=== PATIENT | female | born 2000 | race Caucasian/White ===

== ENCOUNTER 2024-11-11 09:14 | Emergency (ER) | payer OTHER, SELFPAY ==
[2024-11-11 09:16] VITALS: BP 112/72
[2024-11-11 09:35] LABS: Hematocrit 38.1 % (37.0-47.0); Hemoglobin 12.9 g/dL (12.0-16.0); Mean Corp Hgb Conc. 33.9 g/dL (33.0-37.0); Mean Corpuscular Volume 83.0 fL (81.0-99.0); Nucleated Red Blood Cells % 0 %; Platelet Count 217 10^3/uL (130-400); Red Cell Dist. Width 11.9 % (11.5-14.5)
[2024-11-11 09:46] LABS: Urine Character Clear (Clear)
[2024-11-11 09:48] LABS: HCG, Serum Qualitative Screen Negative
[2024-11-11 10:20] LABS: ALT (SGPT) 13 U/L (0-35); AST (SGOT) 22 U/L (14-36); Albumin 5.0 g/dl (3.5-5.0); Alkaline Phosphatase 41 U/L (38-126); Blood Urea Nitrogen 7 mg/dl (7-17); Calcium 9.7 mg/dl (8.4-10.2); Carbon Dioxide 14 mmol/L (22-30); Chloride 111 mmol/L (98-107); Glucose 89 mg/dl (70-99); Lipase 80 U/L (23-300); Potassium 4.3 mmol/L (3.5-5.1); Sodium 139 mmol/L (135-145); Total Protein 7.8 g/dl (6.3-8.2); eGFR > 60.00
== END 2024-11-11 11:36 | disposition left against medical advice (07) ==
LOC: EMR 09:14
PROVIDERS: EMERGENCY PHYSICIAN Emergency Medicine; FAMILY PHYSICIAN Family Medicine
DX: R10.31 Right lower quadrant pain (principal); Z53.21 Procedure and treatment not carried out due to patient leaving prior to being seen by health care provider
CPT/HCPCS: 80053; 81003; 81015; 83690; 84703; 85025; 87086

== ENCOUNTER 2024-11-13 10:14 | Emergency (ER) | payer OTHER, SELFPAY ==
[2024-11-13 10:17] VITALS: BP 124/72
[2024-11-13 10:37] VITALS: BMI 22.3
[2024-11-13 10:46] VITALS: BP 116/75
[2024-11-13] MEDS: OMNIPAQUE 50 ML PO (10:50)
[2024-11-13 11:00] VITALS: BP 101/77
--- NOTE | 2024-11-13 11:03 | ED.GENMED ---
History of Present Illness
General
Chief Complaint: Abdominal Pain
Source: patient
Exam Limitations: none
Time Seen by Provider: 11/13/24 10:35
Nursing documentation reviewed up to this point in time: agreed with
History of Present Illness
History of Present Illness:
23-year-old female presenting to the emergency department today with concerns of right lower abdominal discomfort over the past week especially worsening over the past few days. Denies significant nausea vomiting diarrhea. No vaginal symptoms. No
fevers.
Review of Systems
Review of Systems
Allergies reviewed?: Yes
All Other Systems: ROS reviewed and negative except as documented in HPI and ROS
Phy Exam
Physical Exam
Physical Exam:
GENERAL: Alert , in no apparent distress
EYE: pupils equal and reactive
NECK: Supple, no significant adenopathy.
ENT: o/p clr, mmm.
CARDIAC: Regular rate and rhythm .
LUNGS: Clear breath sounds bilaterally, no acute respiratory distress, no wheezes/rales/rhonchi
ABDOMEN: Right lower quadrant pain at McBurney's point otherwise soft abdomen
NEUROLOGICAL: Alert and oriented, no focal neuro deficits
SKIN: Warm and dry, skin intact.
MUSCULOSKELETAL: No edema, well perfused.
PSYCH: Normal and appropriate interaction.
Course
Orders/Labs/Results
Orders:
Orders
11/13/24 10:39
CT Abd/pel W Iv And Oral Contr Urgent
Comment:
Reason For Exam: RLQ pain
Iohexol [Omnipaque] See Protocol PO NOW STA
Test Result ONCE
11/13/24 10:53
Complete Blood Count/With Diff Urgent
Comprehensive Metabolic Panel Urgent
HCG, Serum Qualitative Screen Urgent
Urinalysis Reflex To Culture Urgent
Date Specimen was Collected: 11/13/24
Time Specimen was Collected: 10:50
Urine Microscopic Reflex Cult Urgent
Urine Culture Urgent
YUNI Source: U
Specimen Description:
Date Specimen was Collected: 11/13/24
Time Specimen was Collected: 10:50
Abnormal Lab Results
11/13/24
10:53
WBC 4.3 L 10^3/uL
(4.8-10.8)
MPV 11.4 H fL
(7.4-10.4)
Chloride 109 H mmol/L
(98-107)
BUN 6 L mg/dl
(7-17)
Leukocyte Esterase Rfl 3+ A
(Negative)
Urine WBC (Reflex) 16-20 A /HPF
(0-5)
Urine Bacteria (Reflex) Moderate A
(Negative)
Urine Yeast Few A
(Negative)
11/13/24 10:53
11/13/24 10:53
Vital Signs
Initial and Last Documented VS:
Initial Vital Signs
Temp Pulse Resp BP Pulse Ox
98.7 F 78 16 124/72 100
11/13/24 10:17 11/13/24 10:17 11/13/24 10:17 11/13/24 10:17 11/13/24 10:17
Last Documented Vital Signs
Temp Pulse Resp BP Pulse Ox
98.7 F 61 15 105/75 100
11/13/24 10:17 11/13/24 13:26 11/13/24 13:26 11/13/24 13:26 11/13/24 11:15
MDM/Problems Addressed
MDM/Problems Addressed:
23-year-old female presenting to the emergency department today with concerns of right lower quadrant abdominal pain present to some degree over the past week but specifically worsened over the past few days. Reproducible here on exam. Plan for CT
scan for further assessment. CT scan showing ovarian follicle rupture. No evidence of torsion on CT. Otherwise patient's urine with some white blood cells and bacteria however with significant squamous epithelial cells. She denies any urinary
symptoms. Otherwise stable for discharge return precautions given.
*Pulse Oximetry
SaO2: 100
Oxygen Mode of Delivery: Room air
Patient hypoxic: no (100)
*Critical Care Note
Total Time (30-74mins, 75-104mins- exclusive of procedures): Not Applicable
ED Attending Note
-
Portions of this chart may have been created with voice recognition software.� Occasional wrong word or��sound alike� substitutions may have occurred due to the inherent limitations of voice recognition software.
Discharge Plan
Departure
Patient Disposition: Home (Routine Discharge)
Date of Disposition: 11/13/24
Time of Disposition: 14:01
Patient with high blood pressure during this ER visit?: No
Condition: Good
Covid-19: Not Applicable
Discharge Problem:
Ovarian cyst rupture
Instructions: Ovarian Cyst (DC)
Prescriptions:
No Action
No Current Medications
0
Referrals:
Nina Reyes DO [Family Provider, Family Practice]
Activity Restrictions/Additional Instructions:
You came to the emergency department today with concerns of pelvic discomfort and abdominal discomfort. Here you had a CT scan that showed ruptured ovarian follicle. Please follow-up closely with gynecology for this. Return for any worsening, new
or concerning symptoms.
Interventions
Interventions:
*Risk Screen - Suicide Last Done: 11/13/24 10:17
*General Assessment Last Done: 11/13/24 10:35
*Neglect/Abuse Screening Last Done: 11/13/24 10:17
*ED- Fall Risk Assessment Last Done: 11/13/24 10:35
*ED COVID-19 Vaccine History Last Done: 11/13/24 10:17
YL-Bnlwcy-Lwosizquzn Assessment Last Done: 11/13/24 10:36
Discharge Date and Time
Print Language: GUATEMALAN
[2024-11-13 11:04] LABS: Hematocrit 37.1 % (37.0-47.0); Hemoglobin 12.8 g/dL (12.0-16.0); Mean Corp Hgb Conc. 34.5 g/dL (33.0-37.0); Mean Corpuscular Volume 82.1 fL (81.0-99.0); Nucleated Red Blood Cells % 0 %; Platelet Count 213 10^3/uL (130-400); Red Cell Dist. Width 11.8 % (11.5-14.5)
[2024-11-13 11:17] LABS: HCG, Serum Qualitative Screen Negative
[2024-11-13 11:23] LABS: Urine Character Clear (Clear)
[2024-11-13 11:27] LABS: ALT (SGPT) 12 U/L (0-35); AST (SGOT) 20 U/L (14-36); Albumin 4.6 g/dl (3.5-5.0); Alkaline Phosphatase 39 U/L (38-126); Blood Urea Nitrogen 6 mg/dl (7-17); Calcium 9.7 mg/dl (8.4-10.2); Carbon Dioxide 22 mmol/L (22-30); Chloride 109 mmol/L (98-107); Estimated Creatinine Clearance 90 ml/min; Glucose 80 mg/dl (70-99); Potassium 3.8 mmol/L (3.5-5.1); Sodium 139 mmol/L (135-145); Total Protein 7.3 g/dl (6.3-8.2); eGFR > 60.00
[2024-11-13 12:05] LABS: Urine Squamous Cell >30 /LPF (Few); Urine Urothelial Cell 0-2 /LPF (FEW)
[2024-11-13 12:06] LABS: Urine Red Blood Cell 0-2 /HPF (0-2); Urine White Cell 16-20 /HPF (0-5)
[2024-11-13 13:26] VITALS: BP 105/75
== END 2024-11-13 14:37 | disposition home or self-care (01) ==
LOC: EMR 10:14
PROVIDERS: Physician Assistant; EMERGENCY PHYSICIAN Emergency Medicine; FAMILY PHYSICIAN Family Medicine
DX: N83.201 Unspecified ovarian cyst, right side (principal)
CPT/HCPCS: 99284; 74177; 80053; 81003; 81015; 84703; 85025; 87086; Q9967